=== PATIENT | male | born 1985 | race Caucasian/White ===

== ENCOUNTER 2021-02-28 23:46 | Emergency (ER) | payer OTHER, SELFPAY ==
[2021-02-28 23:59] VITALS: BP 145/96; PULSE 95; RESP 18; TEMP 36.8; O2SAT 100
--- NOTE | 2021-03-01 00:01 | ECG_ITS ---
Measurements Intervals [place] Rate: 56 P: 57 NV: 167 QRS: 72 QRSD: 88 T: 53 QT: 392 QTc: 380 Interpretive Statements SINUS BRADYCARDIA ST ELEVATION IN DIFFUSE LEADS- PROBABLY EARLY REPOLARIZATION BORDERLINE ECG Electronically Signed On 03-01-2021 7:37:02 PRINTER FLOOR COVERING ASSISTANT by Valerio Neumann D.O.
--- NOTE | 2021-03-01 00:02 | ED.GENADULT ---
HPI - General Adult General Chief complaint: Unspecified Stated complaint: anxiety, palpitations, gassy Time Seen by Provider: 02/28/21 23:58 Source: patient and RN notes reviewed Mode of arrival: ambulatory Limitations: no limitations History of Present Illness HPI narrative: This is a 35 year old male who presents for evaluation of anxiety and giddiness after smoking marijuana. Patient reports he was smoking marijuana with a friend earlier dania. Two hours ago he developed nausea, anxiety, giddiness and cold sweats. he also feels his heart racing. He is concerned that he may have smoked something other than marijuana. He states he has smoked marijuana since he was 16 and he has never felt like this before. He denies chest pain or shortness of breath. He denies alcohol use or other drug use. Related Data Allergies Allergy/AdvReac Type Severity Reaction Status Date / Time No Known Allergies Allergy Verified 03/18/15 15:29 Review of Systems Review of Systems: All systems reviewed & are unremarkable except as noted in HPI and below PMFSH Past Medical History Medical History (Updated 03/01/21 @ 03:26 by Nimo Stahl MD) Patient denies medical problems Surgical History Surgical History (Updated 03/01/21 @ 00:06 by Nimo Stahl MD) No pertinent past surgical history Social History Social History (Updated 03/01/21 @ 00:07 by Nimo Stahl MD) Alcohol intake: never Substance use type: marijuana Exam Narrative: GENERAL: Well-appearing, well-nourished, and in no acute distress. HEAD: Normocephalic, atraumatic EYES: PERRLA and EOMI, conjunctiva clear without discharge EARS: TM's clear bilaterally without erythema or dullness NOSE: Nares clear, no rhinorrhea or epistaxis THROAT:Mucous membranes moist, Oropharynx normal without erythema, exudate, peritonsillar swelling or fluctuance NECK: Supple, without lymphadenopathy or mass RESPIRATORY: No respiratory distress, Airway patent, Respirations non-labored, Clear to auscultation without rales, rhonchi or wheeze HEART: Regular rate and rhythm. No murmur heard. Normal peripheral pulses. ABDOMEN: Soft, nontender, nondistended, normal active bowel sounds. No masses. No rebound or guarding, No organomegaly. EXTREMITIES: No edema, normal strength with full range of motion. SKIN: Warm, dry, normal color without rash NEURO: Alert and oriented x3. CN 2-12 grossly intact. No focal deficits. PSYCH: Normal mood and affect. Course Reevaluation(s) Reevaluation #1: I Discussed with patient labs are unremarkable. Drug screen only positive for cannabis. He has no other questions. Date: 03/01/21 Time: 03:23 Vital Signs Vital signs: Vital Signs Temperature 98.2 F 02/28/21 23:59 Pulse Rate 95 02/28/21 23:59 Respiratory Rate 18 02/28/21 23:59 Blood Pressure 145/96 H 02/28/21 23:59 Pulse Oximetry 100 02/28/21 23:59 Temperature 98.2 F 02/28/21 23:59 Pulse Rate 84 03/01/21 03:17 Respiratory Rate 18 03/01/21 03:17 Blood Pressure 118/68 03/01/21 03:17 Pulse Oximetry 100 03/01/21 03:17 Medical Decision Making Vital Signs Vital Signs: Vital Signs Temperature 98.2 F 02/28/21 23:59 Pulse Rate 95 02/28/21 23:59 Respiratory Rate 18 02/28/21 23:59 Blood Pressure 145/96 H 02/28/21 23:59 Pulse Oximetry 100 02/28/21 23:59 Temperature 98.2 F 02/28/21 23:59 Pulse Rate 84 03/01/21 03:17 Respiratory Rate 18 03/01/21 03:17 Blood Pressure 118/68 03/01/21 03:17 Pulse Oximetry 100 03/01/21 03:17 Lab Data Lab results reviewed: Yes I reviewed the patient's lab results. Result diagrams: 03/01/21 00:20 03/01/21 00:20 Labs: Lab Results 03/01/21 03/01/21 03/01/21 Range/Units 00:20 00:20 00:20 WBC 9.0 (4.5-10.0) K/mm3 RBC 4.59 L (4.6-6.20) M/mm3 Hgb 13.6 L (14.0-18.0) g/dL Hct 39.1 L (42.0-52.0) % MCV 85.2 (80-100) fl [facility]
[2021-03-01 00:29] LABS: Basophils Absolute Auto 0.1 K/mm3 (0.0-0.1); Basophils Percent Auto 0.6 % (0.2-1.2); Eosinophils Absolute Auto 0.1 K/mm3 (0-0.3); Eosinophils Percent Auto 1.6 % (0-4.4); Hematocrit 39.1 % (42.0-52.0); Hemoglobin 13.6 g/dL (14.0-18.0); Immature Granulocyte Absolute 0.03 K/mm3 (0.00-0.031); Immature Granulocyte Percent A 0.3 % (0-0.5); Lymphocytes Absolute Auto 2.17 K/mm3 (0.9-3.2); Lymphocytes Percent Auto 24.2 % (18.3-44.2); Mean Corpuscular HGB Conc 34.8 g/dl (32-36); Mean Corpuscular Hemoglobin 29.6 pg (26-34); Mean Corpuscular Volume 85.2 fl (80-100); Mean Platelet Volume 10.1 fl (7.4-10.4); Monocytes Absolute Auto 0.8 K/mm3 (0.1-0.6); Monocytes Percent Auto 9.4 % (2.6-8.5); Neutrophils Absolute Auto 5.7 K/mm3 (1.3-6.7); Neutrophils Percent Auto 63.9 % (45.5-73.1); Platelet Count Result 303 k/mm3 (150-375); Red Blood Count 4.59 M/mm3 (4.6-6.20); Red Cell Distribution Width 12.9 % (11.5-14.5)
[2021-03-01] MEDS: SODIUM CHLORIDE 0.9% IV 1,000 ML 999 ML IV CONT (00:30)
[2021-03-01 00:32] LABS: Add Urine Microscopic? NO; Appearance Urine Clear (Clear); Bilirubin Urine Negative (Negative); Blood Urine Negative (Negative); Color Urine Colorless (Yellow); Glucose Urine UA Negative (Negative); Ketones Urine Negative (Negative); Leukocyte Esterase Ur Negative LEU/UL (Negative); Nitrate Urine Negative (Negative); Protein Urine Negative (Negative); Urobilinogen Urine Negative mg/dL (<2.0)
[2021-03-01] MEDS: ONDANSETRON INJ 4 MG/2 ML VIAL IV PUSH (00:32)
[2021-03-01 00:46] LABS: Alanine Aminotransferase 14 U/L (4-50); Albumin Level 4.5 g/dL (3.5-5.1); Alkaline Phosphatase 68 U/L (38-126); Anion Gap 7 mmol/L (8-16); Aspartate Amino Transferase 24 U/L (17-59); Bilirubin,Total 0.3 mg/dL (0.2-1.3); Blood Urea Nitrogen 11 mg/dL (9-20); Carbon Dioxide 26 mmol/L (22-30); Chloride 103 mmol/L (98-107); Estimated Glomerular Filt Rate > 60; Ethanol < 10 mg/dL (<10); Glucose 119 mg/dL (65-110); Potassium 3.6 mmol/L (3.4-5.0); Sodium 136 mmol/L (137-145)
[2021-03-01 00:57] LABS: Specific Grav Ur 1.002 (1.001-1.035)
[2021-03-01 01:45] VITALS: BP 104/75; PULSE 60; RESP 16
[2021-03-01 02:12] LABS: Barbiturate Screen Urine Negative (Negative); Benzodiazepines Screen Urine Negative (Negative)
[2021-03-01 02:20] LABS: Cannabinoid Screen Urine Positive (Negative); Cocaine Screen Urine Negative (Negative); Methadone Screen Urine Negative (Negative); Opiate Screen Urine Negative (Negative); Phencyclidine Screen Urine Negative (Negative)
[2021-03-01 03:15] LABS: Amphetamine Screen Urine Negative (Negative)
[2021-03-01 03:17] VITALS: BP 118/68; PULSE 84; RESP 18; O2SAT 100
--- NOTE | 2021-03-01 03:18 | PC.NURSE ---
states feeling better able to close eyes and sleep a little
== END 2021-03-01 03:33 | disposition home or self-care (01) ==
PROVIDERS: Emergency Provider General Practice
DX: R00.2 Palpitations (principal); F12.920 Cannabis use, unspecified with intoxication, uncomplicated; R00.1 Bradycardia, unspecified; R94.31 Abnormal electrocardiogram [ECG] [EKG]
CPT/HCPCS: 36415; 80053; 80307; 81003; 84443; 85025; 93005; 96361; 96374; 96375; 99284; J2405; J7030

== ENCOUNTER 2021-03-06 11:09 | Emergency (ER) | payer OTHER, SELFPAY ==
--- NOTE | 2021-03-06 12:00 | PC.NURSE ---
PT WALKED OUT OF ED WITH AN UPRIGHT,STEADY GAIT.
[2021-03-06 12:14] VITALS: BP 119/71; PULSE 77; RESP 16; TEMP 36.3; O2SAT 100
== END 2021-03-07 01:52 | disposition left against medical advice (07) ==
PROVIDERS: PCP Family Medicine
DX: M54.50 Low back pain, unspecified (principal)
CPT/HCPCS: 99199

== ENCOUNTER 2021-03-06 13:35 | Emergency (ER) | payer OTHER, SELFPAY ==
--- NOTE | ~2021-03-06 | XR_ITS ---
EXAMINATION: XR chest 2V EXAM DATE: 03/06/2021 14:26 INDICATION: Left-sided chest pain for 5 days. TECHNIQUE: Frontal and lateral projections of the chest obtained and reviewed. There is no prior saqib dy for comparison. FINDINGS: Lungs are hyperinflated. No confluent consolidation, pneumothorax or pleural effusion susp ected. Cardiomediastinal silhouette is normal. There are no osseous abnormalities identified. IMPRESSION: Hyperinflation. Clear lungs. Reviewed, dictated and finalized at location A. DATION ASSISTANT
--- NOTE | 2021-03-06 13:43 | ECG_ITS ---
Measurements Intervals [place] Rate: 103 P: 86 MT: 148 QRS: 77 QRSD: 86 T: 57 QT: 336 QTc: 441 Interpretive Statements SINUS TACHYCARDIA RIGHT ATRIAL ENLARGEMENT INCOMPLETE RIGHT BUNDLE BRANCH BLOCK BASELINE ARTIFACT- I, II, AVR, AVL BORDERLINE ECG Electronically Signed On 03-06-2021 17:52:23 SUPERVISOR PAINTING DEPARTMENT by Valerio Neumann D.O.
[2021-03-06 13:59] VITALS: BP 150/88; PULSE 105; RESP 18; TEMP 36.1; O2SAT 100
[2021-03-06 14:28] LABS: Basophils Percent Auto 0.4 % (0.2-1.2); Eosinophils Absolute Auto 0.1 K/mm3 (0-0.3); Eosinophils Percent Auto 0.8 % (0-4.4); Hematocrit 43.6 % (42.0-52.0); Hemoglobin 15.1 g/dL (14.0-18.0); Immature Granulocyte Absolute 0.03 K/mm3 (0.00-0.031); Immature Granulocyte Percent A 0.3 % (0-0.5); Lymphocytes Absolute Auto 2.09 K/mm3 (0.9-3.2); Lymphocytes Percent Auto 22.6 % (18.3-44.2); Mean Corpuscular HGB Conc 34.6 g/dl (32-36); Mean Corpuscular Hemoglobin 29.9 pg (26-34); Mean Corpuscular Volume 86.3 fl (80-100); Mean Platelet Volume 10.3 fl (7.4-10.4); Monocytes Absolute Auto 0.5 K/mm3 (0.1-0.6); Monocytes Percent Auto 5.7 % (2.6-8.5); Neutrophils Absolute Auto 6.5 K/mm3 (1.3-6.7); Neutrophils Percent Auto 70.2 % (45.5-73.1); Platelet Count Result 324 k/mm3 (150-375); Red Blood Count 5.05 M/mm3 (4.6-6.20); Red Cell Distribution Width 12.7 % (11.5-14.5); White Blood Count 9.2 K/mm3 (4.5-10.0)
[2021-03-06 14:37] LABS: Anion Gap 11 mmol/L (8-16); Blood Urea Nitrogen 13 mg/dL (9-20); Carbon Dioxide 24 mmol/L (22-30); Chloride 105 mmol/L (98-107); Estimated CRCL calculation 93 ml/min; Estimated Glomerular Filt Rate > 60; Glucose 100 mg/dL (65-110); Potassium 3.8 mmol/L (3.4-5.0); Sodium 140 mmol/L (137-145)
[2021-03-06 14:38] LABS: Alanine Aminotransferase 16 U/L (4-50); Albumin Level 5.1 g/dL (3.5-5.1); Alkaline Phosphatase 76 U/L (38-126); Aspartate Amino Transferase 26 U/L (17-59); Bilirubin,Total 0.4 mg/dL (0.2-1.3); Calcium 9.9 mg/dL (8.4-10.2); Lipase 82 U/L (23-300)
[2021-03-06 14:40] LABS: INR 0.9; Prothrombin Time 12.3 Seconds (11.1-14.7)
[2021-03-06 14:41] LABS: Partial Thromboplastin Time 29.7 SECONDS (22.3-36.8)
[2021-03-06 14:49] LABS: Troponin I < 0.012 ng/mL (0.000-0.034)
[2021-03-06 16:51] VITALS: BP 137/95; PULSE 100; O2SAT 100
[2021-03-06 17:30] LABS: Troponin I < 0.012 ng/mL (0.000-0.034)
--- NOTE | 2021-03-06 17:55 | ED.CHESTPAIN ---
HPI - Chest Pain General Chief Complaint: Chest Pain Stated Complaint: MULT C/O CP, BLACK STOOLS Time Seen by Provider: 03/06/21 17:53 Source: patient Mode of arrival: ambulatory Limitations: no limitations History of Present Illness HPI narrative: Patient is a 35-year-old male complaining of chest pain, left chest wall particularly the nipple area, sharp, intermittent, currently denies any pain started 4 to 5 days ago. Patient states that his pain is usually occurs when he is stressed, states that he has a history of anxiety and that is why he smokes marijuana. Patient denies any shortness of breath, abdominal pain, nausea, vomiting, diaphoresis, fever or chills. Related Data Allergies Allergy/AdvReac Type Severity Reaction Status Date / Time No Known Allergies Allergy Verified 03/18/15 15:29 Review of Systems Review of Systems: All systems reviewed & are unremarkable except as noted in HPI and below Constitutional: Constitutional: Denies body ache(s), Denies chills, Denies excessive sweating, Denies fatigue, Denies fever(s), Denies headache(s), Denies lethargy, Denies malaise, Denies weakness and Denies weight loss Eyes: Eyes: Denies blurry vision, Denies change in vision and Denies loss of vision ENT: Denies dizziness, Denies ear discharge, Denies headache(s), Denies lip swelling, Denies epistaxis, Denies nasal congestion, Denies neck pain, Denies throat swelling and Denies tongue swelling Cardiovascular: Cardiovascular: Denies diaphoresis, Denies rapid heart rate, Denies edema, Denies irregular heart rhythm, Denies lightheadedness, Denies palpitations, Denies dyspnea and Denies dyspnea on exertion Respiratory: Respiratory: Denies chest congestion, Denies cough, Denies hemoptysis, Denies dyspnea and Denies dyspnea on exertion Gastrointestinal: Gastrointestinal: Denies abdominal pain, Denies hematochezia, Denies diarrhea, Denies nausea, Denies vomiting and Denies hematemesis Musculoskeletal: Musculoskeletal: Denies abnormal gait, Denies deformity, Denies joint swelling, Denies limited range of motion, Denies neck pain and Denies numbness Neurologic: Denies Abnormal speech present, Denies abnormal gait, Denies confusion, Denies dizziness, Denies headache(s), Denies focal weakness, Denies loss of vision, Denies numbness, Denies Other visual disturbances, Denies Sensory deficit (Neuro) and Denies weakness Psychiatric: Psychiatric: Denies confusion, Denies depression, Denies auditory hallucinations, Denies homicidal ideation and Denies suicidal ideation Endocrine: Endocrine: Denies cold intolerance, Denies excessive sweating, Denies fatigue, Denies heat intolerance and Denies palpitations Hematologic/Lymphatic: Hematologic/Lymphatic: Denies easy bleeding and Denies easy bruising Allergic/Immunologic: Allergic/Immunologic: Denies lip swelling, Denies throat swelling and Denies tongue swelling PMFSH Past Medical History Medical History Patient denies medical problems Surgical History Surgical History No pertinent past surgical history Social History Social History Alcohol intake: never Substance use type: marijuana Comments Past medical history: Non-smoker no EtOH use, marijuana use Family history: Negative for SC or coronary artery disease Exam Const: General: cooperative, healthy appearing, comfortable, no acute distress, well developed, alert and awake; No confusion Orientation/consciousness: oriented to person, oriented to place, oriented to time, patient oriented x3 and No confusion Limitations: no limitations HENMT: Head: normal to inspection, normocephalic and atraumatic Ears: hearing grossly normal bilaterally, TM normal on the right and TM normal on the left General nose exam: Normal external nose present, Normal nares present and No nasal disc
--- NOTE | 2021-03-06 19:40 | PC.NURSE ---
PT refused to answer additional questions for RN states I just want to sign and leave . Pt refused d/c v/s
== END 2021-03-06 19:41 | disposition home or self-care (01) ==
PROVIDERS: Emergency Medicine; Emergency Provider Emergency Medicine; PCP Family Medicine
DX: R07.9 Chest pain, unspecified (principal); R00.0 Tachycardia, unspecified
CPT/HCPCS: 36415; 71046; 80053; 83690; 84484; 85025; 85610; 85730; 93005; 99284

== ENCOUNTER 2022-11-06 20:20 | Emergency (ER) | payer OTHER, SELFPAY ==
[2022-11-06 20:22] VITALS: BP 147/96; PULSE 72; RESP 16; TEMP 36.6; O2SAT 98
--- NOTE | 2022-11-06 22:14 | ED.DENTAL ---
HPI - Dental/Oral General Chief complaint: Dental/Oral Stated complaint: bleeding gums Time Seen by Provider: 11/06/22 20:33 Source: patient Mode of arrival: ambulatory Limitations: no limitations History of Present Illness HPI Narrative: Patient is a 36-year-old male who presents to the ED with report of bleeding from his dental extraction sites. Patient reports he had 4 teeth extracted today, 3 on the right lower gumline, 1 upper posterior molar (#1, 32, 27, 28). Patient reports having persistent bleeding from 2 of his right lower extraction sites since the procedure. He was unable to get ahold of the dental office. Denies any difficulty breathing or swallowing. Denies fevers. Denies dizziness or lightheadedness. He is not on any blood thinners. Related Data Allergies Allergy/AdvReac Type Severity Reaction Status Date / Time No Known Allergies Allergy Verified 11/06/22 20:28 Review of Systems Review of Systems: CONSTITUTIONAL: Denies fever, chills, or sweats. ENT: See HPI. CARDIOVASCULAR: Denies chest pain. RESPIRATORY: Denies dyspnea. GASTROINTESTINAL: Denies abdominal pain, nausea, vomiting. NEUROLOGICAL: Denies dizziness, lightheadedness, syncope. All systems reviewed & are unremarkable except as noted in HPI and below PMFSH Past Medical History Medical History Patient denies medical problems Surgical History Surgical History No pertinent past surgical history Social History Social History Alcohol intake: never Substance use type: marijuana Exam Narrative: GENERAL: Well appearing, well-nourished, non-toxic, in no acute distress. HEAD: Normocephalic, atraumatic. ENT: Diffuse dental decay. Scattered dental caries. Extraction sites, #1, #22 with clot formation, no active bleeding. Extraction sites #27 and 28 appeared to be oozing persistent bleeding. No hemorrhaging. No stridor or difficulty breathing. NECK: Supple. No adenopathy, no masses. RESPIRATORY: Airway patent, respirations nonlabored. CARDIOVASCULAR: Regular rate and rhythm without murmurs, rubs, or gallops. Radial pulses 2+ and equal bilaterally. MUSCULOSKELETAL: Moves all extremities. Strength/ROM intact without gross deformities. SKIN: Warm, dry, normal color. No rashes. NEURO: A&O X3. Speech clear. Cranial nerves II-XII grossly intact. Steady gait. No ataxic movements. PSYCHIATRIC: Appropriate mood and affect. Normal interaction. Course Vital Signs Vital signs: Vital Signs Temperature 97.9 F 11/06/22 20:22 Pulse Rate 72 11/06/22 20:22 Respiratory Rate 16 11/06/22 20:22 Blood Pressure 147/96 H 11/06/22 20:22 Pulse Oximetry 98 11/06/22 20:22 Oxygen Delivery Room Air 11/06/22 20:22 Temperature 97.9 F 11/06/22 20:22 Pulse Rate 74 11/06/22 23:01 Respiratory Rate 16 11/06/22 23:01 Blood Pressure 125/70 11/06/22 23:01 Pulse Oximetry 97 11/06/22 23:01 Oxygen Delivery Room Air 11/06/22 20:22 MDM - Dental/Oral MDM Narrative Medical decision making narrative: Patient with 2 areas of persistent bleeding. Vital stable. Patient swished TXA and then had TXA soaked gauze placed over extraction sites that were still bleeding. Reevaluation approximately 30 minutes later, bleeding much improved. Patient with minimal oozing. Resting comfortably. No acute distress. No dizziness or lightheadedness. Will be discharged at this time. Patient comfortable with this plan. Advised to follow-up with dentist tomorrow. Return precautions discussed. Medical Records Attestation: I reviewed the patient's medical records. Discharge Plan Discharge Clinical Impression: Postoperative bleeding from mouth, History of recent dental procedure Patient Disposition: Home, Self-Care Condition: Stable Instructions: Antibiotic Fo
[2022-11-06 23:01] VITALS: BP 125/70; PULSE 74; RESP 16; O2SAT 97
== END 2022-11-06 23:22 | disposition home or self-care (01) ==
PROVIDERS: Emergency Provider Physician Assistant; PCP Family Medicine
DX: K91.840 Postprocedural hemorrhage of a digestive system organ or structure following a digestive system procedure (principal)
CPT/HCPCS: 99283

== ENCOUNTER 2024-03-08 09:24 | Emergency (ER) | payer OTHER, SELFPAY ==
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
[2024-03-08 09:25] VITALS: BP 157/84; PULSE 62; RESP 18; TEMP 36.4; O2SAT 100
[2024-03-08 12:12] VITALS: BP 132/91; PULSE 101; TEMP 36.6; O2SAT 100
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
--- NOTE | 2024-03-08 13:36 | PC.NURSE ---
Patient refused medication after medication was put in med cup. Medication wasted in pyxis with Irma BRUSH
[2024-03-08 13:56] VITALS: BP 134/74; PULSE 74; RESP 18; TEMP 36.7; O2SAT 100
== END 2024-03-08 14:02 | disposition home or self-care (01) ==
PROVIDERS: Emergency Provider Student in an Organized Health Care Education/Training Program; PCP Family Medicine
DX: M47.812 Spondylosis without myelopathy or radiculopathy, cervical region (principal); V89.2XXA Person injured in unspecified motor-vehicle accident, traffic, initial encounter
CPT/HCPCS: 72125; 99284; A9270

== ENCOUNTER 2024-08-27 06:49 | Emergency (ER) | payer OTHER, SELFPAY ==
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
--- OUTSIDE RECORDS SUMMARY | 2024-08-27 06:51 | XMS_ITS | Clinical Summary ---
Author Organization [facility] [address] [place] [id number] Care Team Providers Care Data Typist Name Role Phone Sekou Stuart MD Primary Care Provider [phone] Allergies No known active allergies Medications hydrOXYzine [...] 03/12/2021 Assessment & Plan (03/14/2021 12:53 PM TELEMETRY REGISTERED NURSE): A initial well visit to establish care [...] ed: Patient Refused),02/20/2020(Deferred: Patient Refused) Tdap 11/17/2015 Surgical History Surgery Date Site/Laterality Comments HAND TENDON SURGERY Right Family History Medical History Relation Name Comments Anxiety disorder Father Diabetes Father Hypertension Father RENE disease Mother sarcoma Mother Alcohol abuse Paternal Half-Brother 1 No Known Problems Paternal Half-Brother 2 Relation Name Status Comments Father Alive Maternal Half-Sister Alive Mother Paternal Half-Brother 1 Alive Paternal Half-Brother 2 Alive Sister Alive Social History Tobacco Use Types Packs/Day Years Used Date Smoking Tobacco: Former Cigarettes 1 2012 Vaping Smokeless Tobacco: Never Social Connection and Isolation Panel [NHANES] A nswer Date Recorded Frequency of Communication with Friends and Fami ly Not on file 03/12/2021 Frequency of Social Gatherings with Friends and Family Not on file 03/12/2021 Attends [employer] Not on file 03/12 Active Member [...] on file Legal Sex 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 Gender Identity Not on file Sexual Orientation Not on file 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 file Not on file 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 Not on file Not on file Obstetrics History Last Filed Vital Signs Vital Sign Reading [...] 07/08/2022 9:23 AM CDT Plan of Treatment Health Maintenance Due Date Last Done Comments Hepatitis C Screening 1984 Hepatitis B Screening 2002 Depression Screening 03/12/2022 03/12/2021, 03/12/2021 Regular Well Visit/Exam 18-64 03/12/2022 03/12/2021 Influenza Vaccine (Season Ended) 2024 DTaP/Tdap/Td Vaccine (2 - Td or Tdap) 11/16/2025 11/17/2015 HPV Vaccines Aged Out No longer eligi ble based on patient's age to complete this topic Pneumococcal vaccine <65 Aged Out No longer eligible based on patient's age to complete this topic Varicella Vaccines Discontinued Insurance [employer] [facility] Care Teams Data Typist Relationship Specialty Start Date End Date Sekou Stuart MD PCP - General Family Medicine 03/12/21
[2024-08-27 07:03] VITALS: BP 138/90; PULSE 63; RESP 15; TEMP 35.8; O2SAT 100
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
--- OUTSIDE RECORDS SUMMARY | 2024-08-27 07:54 | XMS_ITS | Referral Summary ---
Author Organization [facility] [address] Address [facility] [place] [address] Care Team Providers Care Electric Melt Operator Name Role Phone Sekou Stuart MD Primary Care Provider [phone] Allergies No known active allergies Medications hydrOXYzine [...] 03/12/2021 Assessment & Plan (03/14/2021 12:53 PM PUMP OILER): A initial well visit to establish care [...] and Family Not on file 03/12/2021 Attends [employer] Services Not on file 03/12 Active Member [...] on file Legal Sex Male 1:02 AM PUMP OILER Gender Identity Not on file Sexual Orientation Not on file 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 Care Teams Electric Melt Operator Relationship Specialty Start Date End Date Sekou Stuart MD PCP - General Family Medicine 03/12/21
--- OUTSIDE RECORDS SUMMARY | 2024-08-27 07:54 | XMS_ITS | Clinical Summary ---
Author Organization [facility] [address] [place] [place] Address [address] [place] [id number] Care Team Providers Care Waste Treatment Operator Name Role Phone Sekou Stuart MD Primary Care Provider [phone] Allergies No known active allergies Medications hydrOXYzine [...] 03/12/2021 Assessment & Plan (03/14/2021 12:53 PM YARD SPECIALIST): A initial well visit to establish care [...] and Family Not on file 03/12/2021 Attends [employer] Services Not on file 03/12 Active Member [...] on file Legal Sex Male 1:02 AM YARD SPECIALIST Gender Identity Not on file Sexual Orientation Not on file 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
[2024-08-27 08:07] VITALS: BP 144/93; PULSE 68; RESP 16; O2SAT 98
== END 2024-08-27 08:09 | disposition home or self-care (01) ==
PROVIDERS: Emergency Provider Emergency Medicine; PCP Family Medicine
DX: S16.1XXA Strain of muscle, fascia and tendon at neck level, initial encounter (principal); V43.52XA Car driver injured in collision with other type car in traffic accident, initial encounter
CPT/HCPCS: 99283